=== PATIENT | female | born 1960 | race Caucasian/White ===

== ENCOUNTER 2023-03-11 16:28 | Emergency (ER) | payer OTHER | END 2023-03-11 18:54 | disposition home or self-care (01) | LOC: JP.ED 16:28 | DX: R04.0 Epistaxis (principal); E03.9 Hypothyroidism, unspecified; Z95.5 Presence of coronary angioplasty implant and graft; Z79.02 Long term (current) use of antithrombotics/antiplatelets; Z79.899 Other long term (current) drug therapy; Z88.1 Allergy status to other antibiotic agents | CPT/HCPCS: 99283 ==

== ENCOUNTER 2023-08-26 15:20 | Emergency (ER) | payer OTHER ==
[2023-08-26] MEDS ORDERED: Sodium Chloride 0.9% 10 ML Syringe FLUSH PRN (16:49)
[2023-08-26] MEDS ORDERED: Naloxone 0.4 MG/ML SDV IVPUSH PRN (16:50)
[2023-08-26] MEDS ORDERED: HYDROmorphone 0.5 MG/0.5 ML Syringe IVPUSH ONE ×4 (16:50→19:03)
[2023-08-26] MEDS ORDERED: Ondansetron 4 MG/2 ML SDV IVPUSH ONE (16:50)
[2023-08-26] MEDS ORDERED: Iopamidol 612 MG/ML 100 ML Bottle IV PRN (16:55)
[2023-08-26] MEDS ORDERED: Sodium Chloride 0.9% 10 ML SDV FLUSH ONE (16:55)
[2023-08-26] MEDS ORDERED: Sodium Chloride 0.9% 100 ML IV SCH (17:00)
[2023-08-26] MEDS ORDERED: Sodium Chloride 0.9% 1,000 ML IV SCH (17:00)
[2023-08-26 17:03] LABS: HEMATOCRIT 44.4 % (34.3-46.0); HEMOGLOBIN 14.5 g/dL (11.2-15.5); MEAN CORPUSCULAR HEMOGLOBIN 33.2 pg (31.6-35.5); MEAN CORPUSCULAR HGB CONC 32.7 g/dL (31.6-35.5); MEAN CORPUSCULAR VOLUME 101.6 fL (81.4-99.0); PLATELET COUNT,PLT 191 K/uL (130-375); RED BLOOD CELL COUNT 4.37 M/uL (3.77-5.24); WHITE BLOOD CELL COUNT,WBC 22.7 K/uL (3.2-11.0)
[2023-08-26 17:22] LABS: ATYPICAL LYMPHOCYTES FEW; BAND ABSOLUTE MAN 1.14 K/uL; BAND PERCENT MAN 5 % (5-11); LYMPHOCYTES ABSOLUTE MAN 1.82 K/uL (0.8-3.3); LYMPHOCYTES PERCENT MAN 8 % (24-44); METAMYELOCYTE ABSOLUTE MAN 1.14 K/uL; METAMYELOCYTE PERCENT MAN 5 %; MONOCYTES ABSOLUTE MAN 0.68 K/uL (0.20-0.90); MONOCYTES PERCENT MAN 3 % (2-6); NEUTROPHILS ABSOLUTE MAN 17.93 K/uL (1.0-7.6); SEG NEUTROPHILS PERCENT MAN 79 % (36-66)
[2023-08-26 17:25] LABS: INR 1.6; PROTHROMBIN TIME 15.6 sec (9.2-10.6); PTT,PARTIAL THROMBOPLSTIN TIME 33.5 sec (21.8-27.3)
[2023-08-26 17:26] LABS: A/G RATIO 0.7 (1.2-2.2); ALANINE AMINOTRANSFERASE,ALT 31 U/L (12-78); ALBUMIN 2.6 g/dL (3.4-5.0); ALKALINE PHOSPHATASE 215 U/L (46-116); ASPARTATE AMNIOTRANSFERASE,AST 75 U/L (15-37); BILIRUBIN TOTAL 5.3 mg/dL (0.2-1.0); BLOOD UREA NITROGEN,BUN 13 mg/dL (7-18); CALCIUM 8.1 mg/dL (8.5-10.1); CARBON DIOXIDE,CO2 24 mmol/L (21-32); CHLORIDE,CL 102 mmol/L (100-108); CREATININE 0.8 mg/dL (0.6-1.0); EST CRCL DRUG DOSING (CG) 61.35 mL/min; ESTIMATED GFR 82 mL/min (>60); GLUCOSE RANDOM 154 mg/dL (74-106); POTASSIUM,K 3.8 mmol/L (3.6-5.2); PROTEIN TOTAL,TP 6.6 g/dL (6.4-8.2); SODIUM,NA 138 mmol/L (140-148)
[2023-08-26 17:27] LABS: ANION GAP 15.8 mmol/L (5.0-14.0)
[2023-08-26 17:29] LABS: APPEARANCE,URINE TURBID (CLEAR); BILIRUBIN,URINE LARGE (NEGATIVE); GLUCOSE,URINE NEGATIVE (NEGATIVE); KETONES,URINE 15 mg/dL (NEGATIVE); LEUKOCYTE ESTERASE,URINE NEGATIVE (NEGATIVE); NITRITE,URINE POSITIVE (NEGATIVE); OCCULT BLOOD,URINE TRACE-INTACT (NEGATIVE); PH,URINE 5.5 (5.0-8.0); PROTEIN,URINE 100 mg/dL (NEGATIVE)
[2023-08-26 17:42] LABS: AMORPHOUS SEDIMENT,URINE MANY; BACTERIA,URINE MANY; COLOR,URINE OTHER (YELLOW); EPITHELIAL CELLS,URINE FEW; MUCUS,URINE FEW; RBC,URINE 0-5 (0-5); WBC,URINE 20-30 (0-5)
[2023-08-26 18:01] LABS: CORONAVIRUS COVID-19 NAA NEGATIVE (NEGATIVE); INFLUENZA A NAA NEGATIVE (NEGATIVE); INFLUENZA B NAA NEGATIVE (NEGATIVE); RESPIRATORY SYNCYTIAL VIR NAA NEGATIVE (NEGATIVE)
[2023-08-26] MEDS ORDERED: Piperacillin/Tazobactam 3.375 GM in Sodium Chloride 0.9% 50 ML IV ONE (18:01)
[2023-08-26] MEDS ORDERED: HYDROmorphone 0.5 MG/0.5 ML Syringe IVPUSH PRN (18:18)
[2023-08-26] MEDS ORDERED: Sodium Chloride 0.9% 1,000 ML IV ONE (18:19)
[2023-08-26 18:42] LABS: BASE EXCESS VENOUS -0.6 mm/L; BICARBONATE,VENOUS 23.2 mmol/L; CARBOXYHEMOGLOBIN 3.2 % (0.0-1.6); METHEMOGLOBIN 0.9 %; O2 SATURATION VENOUS 92.6; OXYHEMOGLOBIN 88.8 %; PCO2 VENOUS 37.4 mm/Hg; PO2 VENOUS 64.3 mm/Hg; TOTAL HEMOGLOBIN 14.2 g/dL (12.0-16.0)
== END 2023-08-26 23:25 ==
LOC: JP.ED 15:20
DX: K80.20 Calculus of gallbladder without cholecystitis without obstruction (principal); E80.6 Other disorders of bilirubin metabolism; N39.0 Urinary tract infection, site not specified; I10 Essential (primary) hypertension; E03.9 Hypothyroidism, unspecified; Z88.1 Allergy status to other antibiotic agents; Z79.899 Other long term (current) drug therapy; Z86.711 Personal history of pulmonary embolism; Z20.822 Contact with and (suspected) exposure to COVID-19
CPT/HCPCS: 0241U; 36415; 74177; 74177-26; 76705; 80053; 81001; 82140; 82248; 82803; 83605; 83690; 85025; 85610; 85730; 87086; 96361; 96365; 96375; 96376; 99284; 99285-25; J1170; J2405; J2543; J3490; J7030; Q9967